=== PATIENT | male | born 1960 | race American Indian/Alaskan Native ===

== ENCOUNTER 2022-06-10 11:34 | Emergency (ER) | payer MEDICARE ==
--- NOTE | 2022-06-10 15:44 | Emergency Department Report ---
Chief Complaint: Dyspnea/Respdistress Stated Complaint: DIFFICULTY BREATHING Time Seen by Provider: 06/10/22 15:42 - HPI History of Present Illness: Mr. Quintanilla is a 62-year-old male that comes to the emergency room because he was told that his apartment has mold in it. He wants tested for mold exposure. He denies any symptoms at the current time. Patient has a past medical history of HIV for which she is on antivirals. Patient has no chest pain or shortness of breath. - ROS Review of Systems: No symptoms - Exam Vital Signs: Vital signs as taken by the provider oxygen saturation 100% on room air, respiratory rate 18, temperature 97.5, blood pressure 101/70 Physical Exam: Alert and oriented x4. S1-S2 Lungs clear to auscultation Abdomen soft and nontender Ambulatory,, Nontoxic and taking p.o. MSE screening note: Focused history and physical exam performed. Due to findings the following was ordered: Patient has no emergent life-threatening condition. He is being referred to PCP for evaluation for mold exposure. ED Disposition for MSE Clinical Impression: Mold exposure Disposition: 01 HOME / SELF CARE / HOMELESS Is pt being admited?: No Does the pt Need Aspirin: No Condition: Stable Referrals: DAVID NEWMAN MD [Staff Physician] - 3-5 Days Time of Disposition: 15:44
== END 2022-06-10 16:02 | disposition home or self-care (01) ==
LOC: ED 11:34
DX: R06.02 Shortness of breath (principal); Z77.120 Contact with and (suspected) exposure to mold (toxic)
CPT/HCPCS: 99283